=== PATIENT | male | born 1985 | race Caucasian/White ===

== ENCOUNTER 2018-10-28 07:35 | Emergency (ER) | payer OTHER ==
[2018-10-28] MEDS ORDERED: ibuprofen tablet 400 MG TABLET PO ONE (08:30)
[2018-10-28 09:47] VITALS: BP 125/75
== END 2018-10-28 09:48 | disposition home or self-care (01) ==
LOC: ER 07:35
DX: S93.692A Other sprain of left foot, initial encounter (principal); J45.909 Unspecified asthma, uncomplicated; W22.8XXA Striking against or struck by other objects, initial encounter; Y93.39 Activity, other involving climbing, rappelling and jumping off; Y92.89 Other specified places as the place of occurrence of the external cause; Y99.8 Other external cause status
CPT/HCPCS: 73630; 99283

== ENCOUNTER 2019-04-13 15:24 | Emergency (ER) | payer OTHER ==
[~2019-04-13] VITALS: Ht 175.3 cm; Wt 56.9 kg
[2019-04-13] MEDS ORDERED: predniSONE 20 mg tablet PO ONE (16:50)
[2019-04-13] MEDS ORDERED: DOXY100C2 PO (16:52)
[2019-04-13] MEDS ORDERED: PRED20TA PO (16:52)
== END 2019-04-13 17:47 | disposition home or self-care (01) ==
LOC: ER 15:25
DX: L23.9 Allergic contact dermatitis, unspecified cause (principal); J45.909 Unspecified asthma, uncomplicated; Z79.899 Other long term (current) drug therapy
CPT/HCPCS: 99283; J7512

== ENCOUNTER 2019-07-01 23:39 | Emergency (ER) | payer OTHER ==
[~2019-07-01] VITALS: Ht 170.2 cm; Wt 61.4 kg
[2019-07-01 23:41] VITALS: BP 143/82
--- NOTE | 2019-07-01 23:54 | NUR ---
PT STATES HE DOES NOT WANT ANY PAIN MEDS AND THAT HE HAS A FEAR OF NEEDLES AND DOES NOT WANT ANY NEEDLE STICKS. PT AWAITING ER MD.
--- NOTE | 2019-07-02 01:59 | NUR ---
PT HAS REPEATEDLY REFUSED PAIN MEDS THAT DR MADRID OFFERED. PT HAS BEEN ADVISED OF THE NECCISITY OF TRANSFERING TO [facility] FOR TRAUMA SUREGERY. PT IS REFUSING. I ASKED FOR PERMISSION TO INFORM HIS MOTHER OF MEDICAL CONDITION.
--- NOTE | 2019-07-02 02:12 | NUR ---
I WENT IN TO TRY TO EXPLAIN TO HIM ABOUT WHY HE NEEDS TO BE TRANSFERRED. HE JUST WANTED TO TALK OVER ME AND DEMAND TO HAVE HIS INITIAL DOCTOR COME IN AND HE IS IRRATIONAL AND NON DIRECTIONABLE AND RUDE. I STOPPED TALKING AND SHUT THE DOORS. HE IS RUDE.
--- NOTE | 2019-07-02 02:17 | NUR ---
DR MADRID IS AWARE THE PT HAS CONTINUOUSLY REFUSED LAB DRAWS.
[2019-07-02] MEDS ORDERED: HYDROcodone/acetaminophen 5mg/325mg tablet PO ONE (02:25)
--- NOTE | 2019-07-02 02:42 | NUR ---
Pts mother, Mireya Stroud, , talking with Dr. Aguilar and Primary RN, Genesis, in ER Outside Screening area and Pt present during this conversation (sitting in WC).
--- NOTE | 2019-07-02 03:13 | NUR ---
REPORT WAS CALLED TO VEENA BARRETT AT [facility]
[2019-07-02] MEDS ORDERED: morphine 4 MG/ML inj SYRINge IV ONE (03:15)
--- NOTE | 2019-07-02 03:17 | NUR ---
PT GAVE US PERMENTION TO CALL MOTHER AND TELL HER HE IS BEING TRANSFERED
== END 2019-07-02 06:24 | disposition short-term general hospital (02) ==
LOC: ER 23:39
DX: S92.002A Unspecified fracture of left calcaneus, initial encounter for closed fracture (principal); S92.001A Unspecified fracture of right calcaneus, initial encounter for closed fracture; J45.909 Unspecified asthma, uncomplicated; F12.90 Cannabis use, unspecified, uncomplicated; W13.9XXA Fall from, out of or through building, not otherwise specified, initial encounter; Y93.33 Activity, BASE jumping; Y92.099 Unspecified place in other non-institutional residence as the place of occurrence of the external cause; Y99.8 Other external cause status
CPT/HCPCS: 70450; 72100; 73590; 73630; 73650; 99285

== ENCOUNTER 2020-07-24 16:14 | Emergency (ER) | payer MEDICAID, OTHER ==
[~2020-07-24] VITALS: Ht 175.3 cm; Wt 61.4 kg
[2020-07-24 16:18] VITALS: BP 129/78
== END 2020-07-24 17:40 | disposition home or self-care (01) ==
LOC: ER 16:15
DX: S01.81XA Laceration without foreign body of other part of head, initial encounter (principal); S01.511A Laceration without foreign body of lip, initial encounter; M25.512 Pain in left shoulder; J45.909 Unspecified asthma, uncomplicated; W22.8XXA Striking against or struck by other objects, initial encounter; Y93.89 Activity, other specified; Y92.89 Other specified places as the place of occurrence of the external cause; Y99.8 Other external cause status
CPT/HCPCS: 12013; 99283

== ENCOUNTER 2020-08-01 19:40 | Emergency (ER) | payer OTHER ==
[~2020-08-01] VITALS: Ht 175.3 cm; Wt 126.0 kg
[2020-08-01 20:08] VITALS: BP 159/64
== END 2020-08-01 21:29 | disposition home or self-care (01) ==
LOC: ER 19:41
DX: S01.81XD Laceration without foreign body of other part of head, subsequent encounter (principal); J45.909 Unspecified asthma, uncomplicated; Z48.02 Encounter for removal of sutures; W19.XXXD Unspecified fall, subsequent encounter
CPT/HCPCS: 99281